=== PATIENT | female | born 1970 | race Two or more races ===

== ENCOUNTER 2020-04-25 17:40 | Emergency (ER) | payer MEDICAID, OTHER ==
[~2020-04-25] VITALS: Ht 167.6 cm; Wt 126.0 kg
[2020-04-25] MEDS ORDERED: LIDOCAINE 1%, 2ML INFIL ONE (18:00)
[2020-04-25] MEDS ORDERED: BUPIVACAINE 0.25% INFIL ONE (18:00)
[2020-04-25] MEDS ORDERED: LIDOCAINE-MPF 2% ,5ML ONE (19:14)
[2020-04-25] MEDS ORDERED: BUPIVACAINE 0.25% ONE (19:14)
--- NOTE | 2020-04-25 19:25 | NUR ---
MEDS PULLED FOR PROVIDER ADMIN
--- NOTE | 2020-04-25 19:31 | NUR ---
PT SITTING BEDSIDE, STARING STRAIGHT AHEAD, TAPPING HER FEET TO "DISTRACT FROM THE PAIN". PROVIDER AT BEDSIDE FOR ASSESSMENT.
== END 2020-04-25 20:31 | disposition home or self-care (01) ==
LOC: ED 20:05
DX: K02.9 Dental caries, unspecified (principal); R00.0 Tachycardia, unspecified
CPT/HCPCS: 64400; 99284